=== PATIENT | female | born 1955 | race Caucasian/White ===

== ENCOUNTER → 2020-09-25 17:53 | Outpatient (CLI) | payer MEDICARE, SELFPAY ==
--- NOTE | ~2020-09-25 | DEXA_ITS ---
Bone Density Report Name: Effie Lorenzana Age: 65 Sex: Female Ethnicity: White Date of : 1955 Indication: monitoring treatment; height loss; prior fracture; postmenopausal Referring Provider: Perla, Ruth Ann Study: Bone densitometry was performed. Exam Date: September 25, 2020 Accession number: [id number] Bone Density: Region BMD T-score Z-score Classification AP Spine (L1-L4) 0.950 -0.9 0.9 Normal Femoral Neck (Left) 0.713 -1.2 0.3 Osteopenia Total Hip (Left) 0.929 -0.1 1.1 Normal Femoral Neck (Right) 0.721 -1.2 0.4 Osteopenia Total Hip (Right) 0.883 -0.5 0.8 Normal Total Hip Mean 0.906 -0.3 1.0 Normal World Health Organization criteria for BMD impression classify patients as: Normal (T-score at or above -1.0), Osteopenia (T-score between -1.0 and -2.5), or Osteoporosis (T-score at or below -2.5). 10-year Fracture Risk: FRAX not reported because: Treated for osteoporosis Previous Exams: Region Exam Age BMD T-score BMD Change BMD Change Date g/cm2 vs Baseline vs Previous AP Spine(L1-L4) 09/25/2020 65 0.950 -0.9 -0.073* -0.047* 08/20/2010 55 0.997 -0.5 -0.026* -0.026* 10/20/2005 50 1.023 -0.2 Total Hip(Left) 09/25/2020 65 0.929 -0.1 -0.047* -0.004 08/20/2010 55 0.933 -0.1 -0.043* -0.043* 10/20/2005 50 0.976 0.3 Total Hip(Right) 09/25/2020 65 0.883 -0.5 -0.057* -0.028* 08/20/2010 55 0.911 -0.3 -0.028* -0.028* 10/20/2005 50 0.940 0.0 *Denotes significance at 95% confidence level, LSC for AP Spine = 0.022 g/cm2, LSC for Total Hip = 0.027 g/cm2 Clinical Information Provided by Patient: Has had a low trauma fracture Is being treated for osteoporosis Has used the following medications: HRT (i.e. estrogen/hormone therapy), Vitamin D, MTV Patient maximum height was 64.0 Menopause Age: 48 Does not regularly consume dairy products Drinks caffeinated beverages Onset of menses at age 12 Number of children 3 Impression: The patient has low bone mass, based on the Left Femoral Neck T-score. The patient has risk factors, including: previous fracture. The BMD for the AP Spine(L1-L4) decreased, changing by -0.047 since the last DXA exam. The BMD for the Total Hip(Right) decreased, changing by -0.028 since the last DXA exam. Discussion: SIGNIFICANT BONE LOSS OBSERVED. Adherence to therapy (including calcium and vitamin D in
== END ==
PROVIDERS: PCP Physician Assistant; Visit Provider Physician Assistant
DX: Z78.0 Asymptomatic menopausal state (principal); M85.89 Other specified disorders of bone density and structure, multiple sites
CPT/HCPCS: 77080

== ENCOUNTER → 2020-12-04 10:48 | Outpatient (CLI) | payer MEDICARE, SELFPAY ==
--- NOTE | ~2020-12-04 | US_ITS ---
EXAMINATION: US abdomen complete DATE: 12/04/2020 11:12 INDICATION: Right upper quadrant pain, prior cholecystectomy TECHNIQUE: Multiple grayscale and Doppler ultrasound images of the abdomen were obtained. COMPARISON: None available FINDINGS: The head and body of the pancreas are normal. The pancreatic tail is obscured by bowel gas. The liver is normal with normal echogenicity and echotexture. No surface nodularity. Normal hepatope jojo flow in the main portal vein. The dilated common bile duct measures 9 mm. The visualized portions of the aorta and inferior vena cava are normal. The right kidney measures 8.1 x 4.2 x 4.1 cm. The left kidney measures 11.6 x 4.9 x 4.3 cm. The kidne ys demonstrate normal parenchymal echogenicity. There is no hydronephrosis. The spleen is normal in a ppearance and measures 7.7 cm. IMPRESSION: 1. Unremarkable postcholecystectomy ultrasound. Dilated common bile duct to be related to post cholec ystectomy state. Recommend correlation with liver function tests. Reviewed, dictated and finalized at location A. IMPRESSION: 1. Unremarkable postcholecystectomy ultrasound. Dilated common bile duct to be related to post cholecystectomy state. Recommend correlation with liver functio n tests.
== END ==
PROVIDERS: PCP Physician Assistant; Visit Provider Physician Assistant
DX: R10.11 Right upper quadrant pain (principal); Z90.49 Acquired absence of other specified parts of digestive tract
CPT/HCPCS: 76700

== ENCOUNTER → 2021-01-14 02:10 | Outpatient (CLI) | payer MEDICARE, SELFPAY ==
[2021-01-14 18:59] LABS: SARS-CoV-2 RNA PCR Negative
== END ==
PROVIDERS: PCP Physician Assistant; Visit Provider Internal Medicine Gastroenterology
DX: Z01.812 Encounter for preprocedural laboratory examination (principal); Z20.822 Contact with and (suspected) exposure to COVID-19
CPT/HCPCS: C9803; U0003; U0005

== ENCOUNTER 2021-01-17 00:53 | Day surgery (SDC) | payer MEDICARE, SELFPAY ==
[2021-01-07 11:05] VITALS: BMI 31.0
--- NOTE | 2021-01-16 14:31 | P.PNAN_ITS ---
Anes - Initial Pre Proc Eval Procedure: Operation Date: 01/17/21 10:00 Proposed Procedures p Screening Colonoscopy - Colton White MD Date/Time: 01/16/21 14:31 Surgeon: Colton White MD Pre Op Diagnosis: family hx of colon ca Patient Data Age: 65 Gender: F Height: 1.63 m Weight: 82 kg Allergies Allergy/AdvReac Type Severity Reaction Status Date / Time No Known Drug Allergies Allergy Unknown Unknown Verified 01/17/21 08:46 Home Medications Medication Instructions Recorded Confirmed Type [id number] calcium-B6 [Foltx] 1 tablet PO DAILY 01/07/21 01/07/21 History Ca carb-Ca gluc-Mg ox-Mg gluco 2 tablet PO HS 01/07/21 01/07/21 History [Calcium Magnesium] Estrodim 1 cap PO DAILY 01/07/21 01/07/21 History anastrozole 1 mg PO DAILY 01/07/21 01/07/21 History finasteride 5 mg PO DAILY 01/07/21 01/07/21 History nebivolol [Bystolic] 5 mg PO HS 01/07/21 01/07/21 History prasterone (dhea)-calcium carb 1 tablet PO DAILY 01/07/21 01/07/21 History [DHEA] progesterone micronized 100 mg PO DAILY 01/07/21 01/07/21 History valsartan-hydrochlorothiazide 1 tablet PO HS 01/07/21 01/07/21 History vitamin K2 45 mcg PO BID 01/07/21 01/07/21 History zinc 100 mg PO DAILY 01/07/21 01/07/21 History Patient hx anesthesia problems: none Family hx anesthesia problems: none Results Review: All pre-operative results and documents have been reviewed as pa rt of the pre-operative evaluation. [facility] Past Medical History Medical History (Updated 01/16/21 @ 16:23 by Colton White MD) Chronic GERD HTN (hypertension) Obesity Family History Family History (Updated 11/03/13 @ 07:13 by DOCTOR UNKNOWN) Mother Hypertension Father Family history of heart disease in male family member before age 55 Other Carcinoma of colon Social History Social History Smoking status: Current every day smoker Alcohol intake: current Drinks per week: 4 Living arrangements: with family Spiritual care concerns: No Anes - Eval Final PreProcedure Day of Procedure 01/16/21 14:31 Patient weight: obese Heart: regular rate and rhythm Lungs: clear to auscultation and normal air movement Airway: Mallampati scale class II Neurological: alert and oriented Last oral intake: >/= 8 hours ASA classification: III Emergent: no Anesthetic plan: proceed Anesthesia type and monitoring: general GIVS Results Review: All pre-operative results and documents have been reviewed as part of the pre-operative evaluation. Informed Consent: The patient's anesthetic plan and its attendant risks and benefits were discussed with the patient/family/POA. Questions were solicited and answers provided to the satisfaction of the patient/family/POA.
--- NOTE | 2021-01-16 16:22 | PM.HPGS ---
History of Present Illness History of Present Illness Consent: Risks, benefits, and alternatives have been discussed and questions answered. Patient agrees to proceed with procedure. Chief complaint: family hx of colon ca Narrative: Effie Lorenzana is a 65 year old female referred for colon cancer screening. She has a family history of colon cancer Review of Systems Review of Systems: All systems reviewed & are unremarkable except as noted in HPI and below PMFSH Past Medical History Medical History Chronic GERD HTN (hypertension) Obesity Family History Family History Mother Hypertension Father Family history of heart disease in male family member before age 55 Other Carcinoma of colon Social History Social History Smoking status: Current every day smoker Alcohol intake: current Drinks per week: 4 Living arrangements: with family Spiritual care concerns: No Meds Home Medications and Allergies Home Medications Medication Instructions Recorded Confirmed Type [id number] calcium-B6 [Foltx] 1 tablet PO DAILY 01/07/21 01/07/21 History Ca carb-Ca gluc-Mg ox-Mg gluco 2 tablet PO HS 01/07/21 01/07/21 History [Calcium Magnesium] Estrodim 1 cap PO DAILY 01/07/21 01/07/21 History anastrozole 1 mg PO DAILY 01/07/21 01/07/21 History finasteride 5 mg PO DAILY 01/07/21 01/07/21 History nebivolol [Bystolic] 5 mg PO HS 01/07/21 01/07/21 History prasterone (dhea)-calcium carb 1 tablet PO DAILY 01/07/21 01/07/21 History [DHEA] progesterone micronized 100 mg PO DAILY 01/07/21 01/07/21 History valsartan-hydrochlorothiazide 1 tablet PO HS 01/07/21 01/07/21 History vitamin K2 45 mcg PO BID 01/07/21 01/07/21 History zinc 100 mg PO DAILY 01/07/21 01/07/21 History Allergies Allergy/AdvReac Type Severity Reaction Status Date / Time No Known Drug Allergies Allergy Unknown Unknown Verified 01/17/21 08:46 Exam Const: General: alert Orientation/consciousness: patient oriented x3 Resp: Auscultation: clear to auscultation bilaterally Cardio: Rhythm: regular rhythm GI: GI Palp: Yes Soft to palpation and No Tenderness to palpation present (GI) Neuro: General: patient oriented x3 Assessment and Plan Assessment and plan (1) Colon cancer screening: Code(s): Z12.11 - Encounter for screening for malignant neoplasm of colon Status: Acute Assessment and Plan: Colonoscopy with possible biopsy or polypectomy or cautery or injection of substances.
[2021-01-17 08:43] VITALS: BP 121/69; PULSE 58; RESP 18; TEMP 36.6; O2SAT 99
[2021-01-17] MEDS: LACTATED RINGERS 1,000 ML 150 ML IV CONT (08:56)
[2021-01-17] MEDS: SIMETHICONE ORAL SUSPENSION 20 MG/0.3 ML 30 ML BOTTLE 0.6 ML IRRIGATION (10:13)
[2021-01-17 10:24] VITALS: BP 86/56; PULSE 59; RESP 23; O2SAT 97
[2021-01-17 10:34] VITALS: BP 85/56; PULSE 57; RESP 16; O2SAT 97
[2021-01-17 10:44] VITALS: BP 106/62; PULSE 58; RESP 19; O2SAT 100
== END 2021-01-17 10:52 | disposition home or self-care (01) ==
PROVIDERS: PCP Physician Assistant; Visit Provider Internal Medicine Gastroenterology
PROC: 0DJD8ZZ Inspection of Lower Intestinal Tract, Via Natural or Artificial Opening Endoscopic (ICD-10-PCS; CPT 45378; principal; 2021-01-17 10:00)
DX: Z12.11 Encounter for screening for malignant neoplasm of colon (principal); D12.3 Benign neoplasm of transverse colon; K63.5 Polyp of colon; K57.30 Diverticulosis of large intestine without perforation or abscess without bleeding; D12.4 Benign neoplasm of descending colon; I10 Essential (primary) hypertension; K21.9 Gastro-esophageal reflux disease without esophagitis; E66.9 Obesity, unspecified; Z68.30 Body mass index [BMI] 30.0-30.9, adult; F17.200 Nicotine dependence, unspecified, uncomplicated; Z79.811 Long term (current) use of aromatase inhibitors; Z80.0 Family history of malignant neoplasm of digestive organs
CPT/HCPCS: 45380; 88305; C9803; J2704; J7120; U0003; U0005

== ENCOUNTER 2022-05-16 00:20 | Day surgery (SDC) | payer MEDICARE, SELFPAY ==
[2022-05-02 14:50] VITALS: BMI 27.8
--- NOTE | 2022-05-15 12:21 | PM.HPGS ---
History of Present Illness History of Present Illness Consent: Risks, benefits, and alternatives have been discussed and questions answered. Patient agrees to proceed with procedure. Chief complaint: URIEL Narrative: Effie Lorenzana is a 67 year old female Referred for investigation of iron deficiency anemia.She was found have an iron saturation of 12%. Her last hemoglobin was 13.2 Review of Systems Review of Systems: All systems reviewed & are unremarkable except as noted in HPI and below PMFSH Past Medical History Medical History Chronic GERD HTN (hypertension) Obesity Family History Family History Mother Hypertension Father Family history of heart disease in male family member before age 55 Other Carcinoma of colon Social History Social History (Updated 05/02/22 @ 14:59 by Patti Maldonado RN) Years smoked: 10 Smoking status: Former smoker Tobacco type: cigarettes Smoking end date: 03/09/74 Alcohol intake: current Drinks per week: 4 Substance use: never Substance use type: does not use Living arrangements: with family Spiritual care concerns: No Meds Home Medications and Allergies Home Medications Medication Instructions Recorded Confirmed Type calcium carb-Ca gluc 500 mg 2 tablet PO HS 01/07/21 05/16/22 History calcium-magnesium ox-Mg gluc 250 mg tablet (Calcium Magnesium) progesterone micronized 100 mg 100 mg PO DAILY 01/07/21 05/16/22 History capsule valsartan 320 1 tablet PO HS 01/07/21 05/16/22 History mg-hydrochlorothiazide 12.5 mg tablet vitamin K2 45 mcg capsule 45 mcg PO BID 01/07/21 05/16/22 History zinc 100 mg tablet 100 mg PO DAILY 01/07/21 05/16/22 History Allergies Allergy/AdvReac Type Severity Reaction Status Date / Time No Known Drug Allergies Allergy Unknown Unknown Verified 05/16/22 08:52 Exam Const: General: alert Orientation/consciousness: patient oriented x3 Resp: Auscultation: clear to auscultation bilaterally Cardio: Rhythm: regular rhythm GI: GI Palp: Yes Soft to palpation and No Tenderness to palpation present (GI) Neuro: General: patient oriented x3 Assessment and Plan Assessment and plan (1) Iron deficiency anemia: Code(s): D50.9 - Iron deficiency anemia, unspecified Status: Acute Assessment and Plan: EGD with possible biopsy or dilatation or cautery.
[2022-05-16 08:54] VITALS: BP 134/68; PULSE 65; RESP 16; TEMP 36.4; O2SAT 100
--- NOTE | 2022-05-16 08:56 | P.PNAN_ITS ---
Anes - Initial Pre Proc Eval Procedure: Operation Date: 05/16/22 10:00 Proposed Procedures p Esophagogastroduodenoscopy - Colton White MD Date/Time: 05/16/22 08:56 Surgeon: Colton White MD Pre Op Diagnosis: URIEL Patient Data Age: 67 Gender: F Height: 1.63 m Weight: 73.6 kg Allergies Allergy/AdvReac Type Severity Reaction Status Date / Time No Known Drug Allergies Allergy Unknown Unknown Verified 05/16/22 08:52 Home Medications Medication Instructions Recorded Confirmed Type calcium carb-Ca gluc 500 mg 2 tablet PO HS 01/07/21 05/16/22 History calcium-magnesium ox-Mg gluc 250 mg tablet (Calcium Magnesium) progesterone micronized 100 mg 100 mg PO DAILY 01/07/21 05/16/22 History capsule valsartan 320 1 tablet PO HS 01/07/21 05/16/22 History mg-hydrochlorothiazide 12.5 mg tablet vitamin K2 45 mcg capsule 45 mcg PO BID 01/07/21 05/16/22 History zinc 100 mg tablet 100 mg PO DAILY 01/07/21 05/16/22 History Patient hx anesthesia problems: none Family hx anesthesia problems: none Results Review: All pre-operative results and documents have been reviewed as part of the pre- operative evaluation. [facility] Past Medical History Medical History Chronic GERD HTN (hypertension) Obesity Family History Family History Mother Hypertension Father Family history of heart disease in male family member before age 55 Other Carcinoma of colon Social History Social History (Updated 05/02/22 @ 14:59 by Patti Maldonado RN) Years smoked: 10 Smoking status: Former smoker Tobacco type: cigarettes Smoking end date: 03/09/74 Alcohol intake: current Drinks per week: 4 Substance use: never Substance use type: does not use Living arrangements: with family Spiritual care concerns: No Anes - Eval Final PreProcedure Day of Procedure 05/16/22 08:56 Patient weight: normal Heart: regular rate and rhythm Lungs: clear to auscultation Airway: Mallampati scale class II Neurological: alert and oriented Last oral intake: >/= 8 hours ASA classification: II Emergent: no Anesthetic plan: proceed Anesthesia type and monitoring: general GIVS and standard monitoring Results Review: All pre-operative results and documents have been reviewed as part of the pre- operative evaluation. Informed Consent: The patient's anesthetic plan and its attendant risks and benefits were discussed with the patient/family/POA. Questions were solicited and answers provided to the satisfaction of the patient/family/POA.
[2022-05-16] MEDS: LACTATED RINGERS 1,000 ML 150 ML IV CONT (09:02)
[2022-05-16 10:02] VITALS: BP 108/69; PULSE 79; RESP 26; O2SAT 100
[2022-05-16 10:12] VITALS: BP 112/74; PULSE 59; RESP 16; O2SAT 100
[2022-05-16 10:22] VITALS: BP 117/71; PULSE 60; RESP 16; O2SAT 100
== END 2022-05-16 10:25 | disposition home or self-care (01) ==
PROVIDERS: PCP Physician Assistant; Visit Provider Internal Medicine Gastroenterology
PROC: 0DJ08ZZ Inspection of Upper Intestinal Tract, Via Natural or Artificial Opening Endoscopic (ICD-10-PCS; CPT 43235; principal; 2022-05-16 10:00)
DX: D50.9 Iron deficiency anemia, unspecified (principal); K44.9 Diaphragmatic hernia without obstruction or gangrene; K22.2 Esophageal obstruction; K21.9 Gastro-esophageal reflux disease without esophagitis; I10 Essential (primary) hypertension; Z87.891 Personal history of nicotine dependence
CPT/HCPCS: 43249; 43239; 88305; 88312; C1726; J2704; J7120

== ENCOUNTER → 2023-01-12 09:37 | Outpatient (CLI) | payer MEDICARE, SELFPAY ==
--- NOTE | ~2023-01-12 | DEXA_ITS ---
Bone Density Report Name: JAXSON MIJARES Age: 67 Sex: Female Ethnicity: White Date of : 1955 Indication: postmenopausal; screening for osteoporosis; height loss; prior fracture; Referring Provider: NIKOLAI, KAITLYN Study: Bone densitometry was performed. Exam Date: January 12, 2023 Accession number: [id number] Bone Density: Region BMD T-score Z-score Classification AP Spine (L1-L4) 0.968 -0.7 1.2 Normal Femoral Neck (Left) 0.732 -1.1 0.6 Osteopenia Total Hip (Left) 0.935 -0.1 1.3 Normal Femoral Neck (Right) 0.755 -0.8 0.8 Normal Total Hip (Right) 0.927 -0.1 1.3 Normal Total Hip Mean 0.931 -0.1 1.3 Normal World Health Organization criteria for BMD impression classify patients as: Normal (T-score at or above -1.0), Osteopenia (T-score between -1.0 and -2.5), or Osteoporosis (T-score at or below -2.5). 10-year Fracture Risk(1): Major Osteoporotic Fracture 13% Hip Fracture 1.1% Reported Risk Factors: [place] (), Neck BMD=0.732, BMI=29.9, previous fracture (1) FRAX(R) Version 3.08. Fracture probability calculated for an untreated patient. Fracture probability may be lower if the patient has received treatment. Previous Exams: Region Exam Age BMD T-score BMD Change BMD Change Date g/cm2 vs Baseline vs Previous AP Spine(L1-L4) 01/12/2023 67 0.968 -0.7 -0.055* 0.018 09/25/2020 65 0.950 -0.9 -0.073* -0.047* 08/20/2010 55 0.997 -0.5 -0.026* -0.026* 10/20/2005 50 1.023 -0.2 Total Hip(Left) 01/12/2023 67 0.935 -0.1 -0.041* 0.006 09/25/2020 65 0.929 -0.1 -0.047* -0.004 08/20/2010 55 0.933 -0.1 -0.043* -0.043* 10/20/2005 50 0.976 0.3 Total Hip(Right) 01/12/2023 67 0.927 -0.1 -0.013 0.044* 09/25/2020 65 0.883 -0.5 -0.057* -0.028* 08/20/2010 55 0.911 -0.3 -0.028* -0.028* 10/20/2005 50 0.940 0.0 *Denotes significance at 95% confidence level, LSC for AP Spine = 0.022 g/cm2, LSC for Total Hip = 0.027 g/cm2 Clinical Information Provided by Patient: Has had a low trauma fracture Has used the following medications: HRT (i.e. estrogen/hormone therapy), Vitamin D, MTV Patient maximum height was 64.0 Menopause Age: 48 Does not regularly consume dairy products Drinks caffeinated beverages Onset of menses at age 12 Number of children 3
== END ==
PROVIDERS: PCP Physician Assistant; Visit Provider Physician Assistant
DX: Z78.0 Asymptomatic menopausal state (principal); M85.88 Other specified disorders of bone density and structure, other site
CPT/HCPCS: 77080